=== PATIENT | male | born 1985 | race Caucasian/White ===

== ENCOUNTER 2019-02-02 14:53 | Emergency (ER) | payer OTHER ==
[~2019-02-02] VITALS: Ht 182.9 cm; Wt 104.3 kg
[~2019-02-02 14:53] MED LIST: PEPCID40 MG
[2019-02-02] MEDS ORDERED: KEFLEX500 M1 PO (15:49)
[2019-02-02] MEDS ORDERED: IBUPROFEN 800800 M1 PO (15:49)
[2019-02-02] MEDS ORDERED: NORCO 5-325 TA1 EACH PO (15:49)
[2019-02-02 16:28] VITALS: BP 132/88
== END 2019-02-02 16:28 | disposition home or self-care (01) ==
LOC: M.ERS 14:53
DX: S61.211A Laceration without foreign body of left index finger without damage to nail, initial encounter (principal); S61.213A Laceration without foreign body of left middle finger without damage to nail, initial encounter; S61.215A Laceration without foreign body of left ring finger without damage to nail, initial encounter; K21.9 Gastro-esophageal reflux disease without esophagitis; W26.8XXA Contact with other sharp object(s), not elsewhere classified, initial encounter; Y93.89 Activity, other specified; Y92.89 Other specified places as the place of occurrence of the external cause; Y99.8 Other external cause status